=== PATIENT | male | born 1930 | race Caucasian/White ===

== ENCOUNTER 2016-08-01 06:39 | Day surgery (SDC) | payer MEDICARE, BC ==
[~2016-08-01 06:39] MED LIST: Buffered Lidocaine 1% SYR 3ML* 3 ML/SYR SYRINGE INTRADERM ONE; Dexamethasone IV* 4 MG/ML 1 ML (4 MG) IV SLOW PU ONE; Dexamethasone IV* 4 MG/ML 1 ML (4 MG) ONE; Famotidine IV* 10 MG/ML 2 ML (20 mg) IV ONE; Famotidine IV* 10 MG/ML 2 ML (20 mg) ONE
[2016-08-01] MEDS ORDERED: Phenylephrine 2.5% OPTH.SOL* 2 ML BTL ONE (07:16)
[2016-08-01] MEDS ORDERED: Neomycin/Polymy/Dex OPHTH.OIN* 3.5 GM ONE (07:16)
[2016-08-01] MEDS ORDERED: BSS OPTH.SOL* BTL ONE (07:16)
[2016-08-01] MEDS ORDERED: Propofol* 10 MG/ML 20 ML BTL IV PUSH ONE (07:23)
[2016-08-01] MEDS ORDERED: Lidocaine 2% PF * 5 ML VIAL ONE (07:23)
[2016-08-01] MEDS ORDERED: fentaNYL* 50 MCG/ML 2 ML VIAL (100 MCG VIAL) ONE (07:43)
[2016-08-01] MEDS ORDERED: fentaNYL* 50 MCG/ML 2 ML VIAL (100 MCG VIAL) IV PRN (07:45)
[2016-08-01] MEDS ORDERED: Ibuprofen TAB* 600 MG PO PRN (07:45)
[2016-08-01] MEDS ORDERED: HYDROcodone/ACETAMIN 5-325 MG* 1 TAB PO PRN (07:45)
[2016-08-01] MEDS ORDERED: EPHEDrine (Pressors)* 50 MG/ML VIAL ONE (08:04)
[2016-08-01] MEDS ORDERED: Ondansetron INJ* 2 MG/ML VIAL ONE (08:28)
[2016-08-01] MEDS ORDERED: HYDROcodone/ACETAMIN 5-325 MG* 1 TAB ONE (09:36)
[2016-08-01 10:03] VITALS: BP 152/65
--- NOTE | 2016-08-01 23:52 | OP ---
DATE OF OPERATION: 08/01/16 [facility] DATE OF : 30 SURGEON: Nestor Alcaraz MD CLASSIFIER TENDER: None. ANESTHESIOLOGIST: Kvng Lozano MD ANESTHESIA: General. PRE-OP DIAGNOSES: Right hypotropia, left hypertropia. POST-OP DIAGNOSES: Right hypotropia, left hypertropia. OPERATIVE PROCEDURE: Recess superior rectus muscle, left eye; resect inferior rectus muscle, left eye. COMPLICATIONS: None. BLOOD LOSS: Minimal. DESCRIPTION OF PROCEDURE: The patient was brought to the operating room, received general anesthesia without any complications. A drop of tetracaine was placed in each eye. He was prepped and draped in the usual sterile fashion for ophthalmic surgery and another drop of phenylephrine was placed in the left eye. Attention was directed to the right eye where forced ductions were performed and appeared to be normal. The speculum was then placed in the left eye and forced ductions were again performed and appeared to be normal. The eye was grasped in the superotemporal quadrant and was pulled to an inferomedial position. A superotemporal fornix incision was created with the Emma scissors and Tenon's capsule was violated. The superior rectus muscle was isolated with a Itz muscle hook. The conjunctiva was reflected over the surface of the muscle. The muscle was cleaned with sharp and blunt dissection and the check ligament was opened. Attention was directed to the anterior and superior surface of the muscle, relieving any attachments from the muscle to the levator aponeurosis or muscle. A double-arm 6-0 Vicryl suture was woven into the muscle near its insertion and locked at either end. The muscle was disinserted from the globe. The original muscle insertion site was grasped with interrupted locking forceps. A bijal was made on the sclera 4.0 mm posterior to original insertion. The muscle was recessed to this point and tied securely. The conjunctiva was closed with interrupted 6-0 gut sutures after the locking forceps were removed. The eye was then grasped in the inferomedial quadrant and brought to a superotemporal gaze. The inferomedial fornix incision was created with the Emma scissors and the Tenon's capsule was opened. The inferior rectus muscle was isolated with a Itz muscle hook. The conjunctiva was reflected over the hook and a check ligament was violated. The muscle was cleaned with sharp and blunt dissection with a tangent to the inferior anterior aspect, relieving any attachments from the muscle to the lower lid retractors. A second Itz muscle hook was placed under the muscle. The muscle was exposed and a bijal was made 3 mm posterior to the original insertion on the muscle. A double-arm 6-0 Vicryl was woven through muscle at this point and locked at either end. The hooks were removed and a [place] muscle clamp was placed across the muscle near its insertion. The muscle was disinserted from the globe. The original muscle insertion was grasped with an interrupted locking forceps. The sutures were then placed to the original insertion and then back up to the muscle at the level of the sutures within the muscle belly. The Itz muscle clamp was used to pull the muscle such that the sutures were lined over the original insertion site. The sutures were then tied securely. The distal aspect of the muscle was resected and removed. There was no excessive bleeding. The muscle was inspected and found to be in good position with the two sutures intact and tied properly. Hemostasis as needed was achieved at the original insertion. All instruments were removed and the conjunctiva was closed with interrupted 6-0 gut sutures. The speculum was then removed. Topical Maxitrol ointment was placed on the surface of the left eye. The patient was awakened uneventfully and sent to recovery room with postop instructions and a followup appointment given. [id number] #: [id number] BINDU
== END 2016-08-01 10:28 | disposition home or self-care (01) ==
LOC: OREAST 06:39
PROVIDERS: ATTEND Ophthalmology
DX: H50.21 Vertical strabismus, right eye (principal); H50.22 Vertical strabismus, left eye; I10 Essential (primary) hypertension; Z79.01 Long term (current) use of anticoagulants; Z88.6 Allergy status to analgesic agent; Z88.8 Allergy status to other drugs, medicaments and biological substances; I48.91 Unspecified atrial fibrillation; I45.10 Unspecified right bundle-branch block; G47.33 Obstructive sleep apnea (adult) (pediatric); E78.2 Mixed hyperlipidemia; K21.9 Gastro-esophageal reflux disease without esophagitis
CPT/HCPCS: A9270-GY; J1100; J2405; J2704; J3010

== ENCOUNTER 2017-01-30 06:33 | Day surgery (SDC) | payer MEDICARE, BC ==
[~2017-01-30 06:33] MED LIST changes: +Buffered Lidocaine 0.9% SYRIN* 5 ML/SYR SYRINGE INTRADERM ONE; -Buffered Lidocaine 1% SYR 3ML* 3 ML/SYR SYRINGE INTRADERM ONE; -Dexamethasone IV* 4 MG/ML 1 ML (4 MG) IV SLOW PU ONE; -Dexamethasone IV* 4 MG/ML 1 ML (4 MG) ONE; -Famotidine IV* 10 MG/ML 2 ML (20 mg) IV ONE; -Famotidine IV* 10 MG/ML 2 ML (20 mg) ONE
[2017-01-30] MEDS ORDERED: Tetracaine 0.5% OPTH.SOL 15ML* BTL ONE (07:18)
[2017-01-30] MEDS ORDERED: Neomycin/Polymy/Dex OPHTH.OIN* 3.5 GM ONE (07:18)
[2017-01-30] MEDS ORDERED: BSS OPTH.SOL* BTL ONE (07:18)
[2017-01-30] MEDS ORDERED: Phenylephrine 2.5% OPTH.SOL* 2 ML BTL ONE (07:18)
[2017-01-30] MEDS ORDERED: Buffered Lidocaine 0.9% SYRIN* 5 ML/SYR SYRINGE ONE (07:24)
[2017-01-30] MEDS ORDERED: fentaNYL* 50 MCG/ML 2 ML VIAL (100 MCG VIAL) ONE (07:40)
[2017-01-30] MEDS ORDERED: Lidocaine 2% PF * 5 ML VIAL ONE (07:41)
[2017-01-30] MEDS ORDERED: Propofol* 10 MG/ML 20 ML BTL IV PUSH ONE (07:41)
[2017-01-30] MEDS ORDERED: Ondansetron INJ* 2 MG/ML VIAL IV PRN (08:06)
[2017-01-30] MEDS ORDERED: oxyCODONE/Acetamin 5/325 MG* TAB PO PRN (08:06)
[2017-01-30] MEDS ORDERED: fentaNYL* 50 MCG/ML 2 ML VIAL (100 MCG VIAL) IV PRN (08:06)
[2017-01-30] MEDS ORDERED: DiMENhydriNATE IV* 50 MG/ML VIAL IV PUSH PRN (08:06)
[2017-01-30 12:07] VITALS: BP 154/56
--- NOTE | 2017-01-31 01:27 | OP ---
DATE OF OPERATION: 01/30/17 [facility] DATE OF : 30 SURGEON: Nestor Alcaraz MD MEDICAL CERTIFICATION SPECIALIST: None. ANESTHESIOLOGIST: Stewart Becerra MD ANESTHESIA: General. PRE-OP DIAGNOSIS: Left hypertropia. POST-OP DIAGNOSIS: Left hypertropia. OPERATIVE PROCEDURE: Resect left inferior rectus muscle, recess left superior rectus muscle on adjustable suture. BLOOD LOSS: Minimal. DESCRIPTION OF PROCEDURE: The patient was brought to the operating room and given general anesthesia without any complications. A drop of tetracaine and a drop of phenylephrine were placed in his left eye. The patient was prepped and draped in the usual sterile fashion for ophthalmic surgery and attention was directed to the left eye where a speculum was placed. Forced ductions were performed, which showed slight restriction to downgaze. This eye had had a previous strabismus surgery, so there were some conjunctival scarring. An inferior temporal fornix incision was created with a Emma scissor. Blunt and sharp dissection was performed until the inferior rectus muscle could be hooked on a [place] muscle hook. Further blunt and sharp dissection was performed to clean the muscle and the surrounding areas. The muscle had been previously resected. A double armed 6-0 Vicryl suture was woven through the muscle approximately 3 mm posterior to the present insertion. The sutures were locked at either end. A Itz muscle hook clamp was used to clamp the muscle between the sutures and the insertion on the globe. The muscle was disinserted from the globe. The sutures were replaced back through the original insertion site. The muscle was pulled into position and the sutures were tied securely. The muscle clamp was removed and the distal aspect of the muscle was resected. The muscle was now in its original insertion site, having had a 3 mm resection. Hemostasis was achieved with gentle cauterization. The conjunctiva was closed with interrupted 6-0 gut sutures. At this point, attention was directed to the superior rectus. To achieve best exposure, a peritomy of the conjunctiva near the limbus was planned. Firstly, a 4-0 silk suture was placed at the 2-0 clock and a second similar suture was placed at the 10 o'clock position through the conjunctiva near the limbus. Each suture was placed on a [place] hemostat to put downward traction on the eye. A marking pen was used to bijal the initial and end point of the conjunctival peritomy, which was performed in the superior 2 to 3 o'clock hours. A relaxation incision was created in the superonasal quadrant and the conjunctiva was sharply and bluntly dissected until the superior rectus muscle could be isolated under Itz muscle hook. This muscle had been previously recessed. A double-armed 6-0 Vicryl suture was woven through the muscle and locked at either end. The muscle was disinserted from the globe. The 6-0 Vicryl sutures were then replaced through the globe at the original muscle insertion approximately 6 mm posterior to the limbus. The muscle was then allowed to hang back to the point at which it was found and then an additional 3 mm. This suture was tied in a bow and left in this position. Suture ends were trimmed. The conjunctiva was partially closed with interrupted gut sutures. Traction sutures were removed. The patient was then sent to recovery room where he was awakened uneventfully. Approximately an hour later, he returned to the operating room. Here, he was placed in an upright position and his ocular motility was measured. He appeared to have approximately 5 diopter left hypertropia. He was then laid down and topical tetracaine was placed on the surface of the eye. In a clean, but nonsterile technique, the Vicryl was unknotted and relaxed another millimeter. It was then replaced in a bow. The patient was placed in upright position again where his ocular alignment appeared to show no vertical deviation. The patient was then reclined and the bow was converted to a knot. The conjunctiva was then closed with interrupted gut sutures. Topical tetracaine followed by Maxitrol was placed on the surface of the eye. The patient was sent to recovery room in stable condition with postoperative instructions and followup appointment given. [id number]/[facility] #: [id number] BINDU
== END 2017-01-30 10:06 | disposition home or self-care (01) ==
LOC: OREAST 06:33
PROVIDERS: ATTEND Ophthalmology
DX: H50.22 Vertical strabismus, left eye (principal); I48.91 Unspecified atrial fibrillation; I12.9 Hypertensive chronic kidney disease with stage 1 through stage 4 chronic kidney disease, or unspecified chronic kidney disease; N18.2 Chronic kidney disease, stage 2 (mild); N40.0 Benign prostatic hyperplasia without lower urinary tract symptoms; E78.2 Mixed hyperlipidemia; G47.33 Obstructive sleep apnea (adult) (pediatric); Z79.01 Long term (current) use of anticoagulants; Z88.6 Allergy status to analgesic agent; Z88.8 Allergy status to other drugs, medicaments and biological substances; Z87.891 Personal history of nicotine dependence; Z86.73 Personal history of transient ischemic attack (TIA), and cerebral infarction without residual deficits; E66.9 Obesity, unspecified; Z68.38 Body mass index [BMI] 38.0-38.9, adult
CPT/HCPCS: A9270-GY; J2704; J3010